=== PATIENT | female | born 1945 | race Caucasian/White ===

== ENCOUNTER 2016-12-31 10:25 | Outpatient (CLI) | payer MEDICARE ==
[2016-12-31 11:52] LABS: Anisocytosis SLIGHT = 6-15 cells (100X) (0-5/hpf); Eosinophils 5 % (0-10); Hemoglobin 11.8 g/dL (12.0-16.0); Lymphocytes 80 % (21-51); MDiff Complete? YES; Mean Corpuscular HGB CONC 32.8 g/dL (32.0-36.0); Mean Corpuscular Volume 88.2 fl (81.0-99.0); Mean Platelet Volume 5.9 fL (7.4-10.4); Monocytes 2 % (0-10); Neutrophil 7 % (42-75); Platelet Count 184 thou/uL (130-400); RBC Distribution Width 15.3 % (11.5-14.5); Reactive Lymphocytes 6 % (0-10); Red Blood Cell (RBC) Count 4.07 mill/uL (4.20-5.40); Rouleaux Formation SLIGHT = 1-5 cells (100X) (None Seen); White Blood Cell (WBC) Count 1.7 thou/uL (4.8-10.8)
[2016-12-31 12:28] LABS: ALT (SGPT) 37 U/L (8-55); AST (SGOT) 35 U/L (5-34); Albumin 3.8 g/dL (3.4-4.8); Alkaline Phosphatase 68 U/L (40-150); Anion Gap 14 mmol/L (10-20); BUN (Urea Nitrogen) 17 mg/dL (9.8-20.1); Bilirubin, Total 1.1 mg/dL (0.2-1.2); Calc. Creatinine Clearance 0 mL/min (70-130); Calcium 9.6 mg/dL (7.8-10.44); Carbon Dioxide 28 mmol/L (23-31); Chloride 103 mmol/L (98-107); Estimated GFR-MDRD 71; Globulin 3.8 g/dL (2.4-3.5); Glucose 94 mg/dL (83-110); Potassium 4.5 mmol/L (3.5-5.1); Protein, Total 7.6 g/dL (6.0-8.3); Sodium 140 mmol/L (136-145)
== END 2016-12-31 10:26 | disposition home or self-care (01) ==
LOC: MADLABBHPM 10:25
PROVIDERS: ATTEND Family Medicine
DX: M06.9 Rheumatoid arthritis, unspecified (principal)
CPT/HCPCS: 36415; 80053; 84443; 85025

== ENCOUNTER 2022-10-10 15:10 | Outpatient (CLI) | payer MEDICARE | END 2022-10-10 15:11 | disposition home or self-care (01) | LOC: MADRAD 15:10 | PROVIDERS: ATTEND Internal Medicine | DX: M47.26 Other spondylosis with radiculopathy, lumbar region (principal); M25.78 Osteophyte, vertebrae; R29.890 Loss of height; M53.85 Other specified dorsopathies, thoracolumbar region | CPT/HCPCS: 72080 ==

== ENCOUNTER 2025-06-29 12:03 | Emergency (ER) | payer MEDICARE ==
[2025-06-29 12:56] LABS: Hematocrit 32.8 % (36.0-47.0); Hemoglobin 10.5 g/dL (12.0-16.0); Mean Corpuscular Hemoglobin 27.6 pg (27.0-31.0); Mean Corpuscular Volume 86.7 fl (78.0-98.0); Platelet Count 105 10x3/uL (130-400); Red Blood Cell (RBC) Count 3.79 mill/uL (4.20-5.40); White Blood Cell (WBC) Count 1.3 10x3/uL (4.8-10.8)
[2025-06-29 12:57] LABS: INR-International Normal Ratio 1.2; Prothrombin Time 15.0 sec (12.0-14.7)
[2025-06-29 12:58] LABS: PTT 44.2 sec (22.9-36.1)
[2025-06-29 13:05] LABS: ALT (SGPT) 17 U/L (Less than 34); AST (SGOT) 39 U/L (11-34); Albumin 2.9 g/dL (3.1-4.5); Alkaline Phosphatase 61 U/L (40-110); Anion Gap 14 mmol/L (10-20); BUN (Urea Nitrogen) 30 mg/dL (9.8-20.1); Bilirubin, Total 0.3 mg/dL (0.3-1.2); Calc. Creatinine Clearance 0 mL/min (70-130); Calcium 7.9 mg/dL (7.8-10.44); Carbon Dioxide 21 mmol/L (23-31); Chloride 103 mmol/L (98-107); Globulin 5.3 g/dL (2.4-3.5); Glucose 100 mg/dL (83-110); Potassium 4.1 mmol/L (3.5-5.1); Sodium 134 mmol/L (136-145)
[2025-06-29 13:23] LABS: MDiff Complete? YES
[2025-06-29 13:26] LABS: Anisocytosis SLIGHT = 6-15 cells (100X) (0-5/hpf); Platelet Adequacy Comment Appears Decreased
[2025-06-29 16:06] LABS: Glucose, Urine (Dipstick) Negative (Negative); Leukocyte Trace (Negative); Protein, Urine (Dipstick) 30 mg/dL (Neg-Trace); Specific Gravity, Urine 1.025 (1.005-1.030)
[2025-06-29 16:13] LABS: Bacteria/HPF Rare-Few HPF (None Seen); CAUTI Indications for Culture Dysuria,urgency,freq
[2025-06-29 16:14] LABS: Urine Culture Reflex No No
== END 2025-06-29 17:35 | disposition home or self-care (01) ==
LOC: MADERS 12:03
DX: S70.02XA Contusion of left hip, initial encounter (principal); S30.0XXA Contusion of lower back and pelvis, initial encounter; R82.90 Unspecified abnormal findings in urine; D70.9 Neutropenia, unspecified; W18.30XA Fall on same level, unspecified, initial encounter
CPT/HCPCS: 70450; 71250; 74177; 80053; 81001; 85025; 85610; 85730; 87077; 87086; 93005